=== PATIENT | male | born 1970 | race Caucasian/White ===

== ENCOUNTER 2018-03-28 20:06 | Inpatient (IN) | payer SELFPAY ==
[2018-03-28] MEDS ORDERED: NS 1,000 ML IV ONE ×2 (20:20→23:30)
--- NOTE | 2018-03-28 20:24 | EDPHY ---
H & P Stated Complaint: NV, fatigue, SOB Time Seen by Provider: 03/28/18 20:19 HPI/ROS: CHIEF COMPLAINT: Nausea vomiting, lethargy HISTORY OF PRESENT ILLNESS: Patient is a 47-year-old man with history of type 1 diabetes who states that he began feeling lethargic yesterday and then today began vomiting. He takes Levemir NovoLog regularly and has been taking them. His glucose at noon was 280 and then he took a dose of NovoLog. No fevers. No abdominal pain. No chest pain. Mild shortness of breath. No urinary symptoms. No headache. No rash. Severity: Severe Modifying factors: None REVIEW OF SYSTEMS: Constitutional: See HPI EENTM: denies: blurred vision, double vision, nose congestion Respiratory: denies: cough, shortness of breath Cardiac: denies: chest pain, irregular heart rate, lightheadedness, palpitations Gastrointestinal/Abdominal: See HPI Genitourinary: denies: dysuria, frequency, hematuria, pain Musculoskeletal: denies: joint pain, muscle pain Skin: denies: lesions, rash, jaundice, bruising Neurological: denies: headache, numbness, paresthesia, tingling, dizziness, weakness Hematologic/Lymphatic: denies: blood clots, easy bleeding, easy bruising Immunologic/allergic: denies: HIV/AIDS, transplant 10 systems reviewed and negative except as noted EXAM: GENERAL: Moderate distress HEAD: Atraumatic, normocephalic. EYES: Pupils equal round and reactive to light, extraocular movements intact, sclera anicteric, conjunctiva are normal. ENT: TMs normal, nares patent, oropharynx clear without exudates. Moist mucous membranes. NECK: Normal range of motion, supple without lymphadenopathy or JVD. LUNGS: Breath sounds clear to auscultation bilaterally and equal. No wheezes rales or rhonchi. HEART: Regular rate and rhythm without murmurs, rubs or gallops. ABDOMEN: Soft, nontender, normoactive bowel sounds. No guarding, no rebound. No masses appreciated. BACK: No CVA tenderness, no spinal tenderness, step-offs or deformities EXTREMITIES: Normal range of motion, no pitting or edema. No clubbing or cyanosis. NEUROLOGICAL: Cranial nerves II through XII grossly intact. Normal speech, normal gait. 5/5 strength, normal movement in all extremities, normal sensation , normal reflexes PSYCH: Normal mood, normal affect. SKIN: Warm, dry, normal turgor, no visible rashes or lesions. Source: Patient Exam Limitations: No limitations - Personal History Current Tetanus Diphtheria and Acellular Pertussis (TDAP): Yes - Medical/Surgical History Hx Asthma: No Hx Chronic Respiratory Disease: No Hx Diabetes: Yes Hx Cardiac Disease: No Hx Renal Disease: No Hx Cirrhosis: No Hx Alcoholism: No Hx HIV/AIDS: No Hx Splenectomy or Spleen Trauma: No Other PMH: IDDM - Family History Significant Family History: No pertinent family hx - Social History Smoking Status: Never smoked Alcohol Use: Sober Drug Use: None Constitutional: Initial Vital Signs Temperature (C) 36.4 C 03/28/18 20:11 Heart Rate 118 H 03/28/18 20:11 Respiratory Rate 18 03/28/18 20:11 Blood Pressure 148/99 H 03/28/18 20:11 O2 Sat (%) 98 03/28/18 20:11 O2 Delivery Mode Room Air Allergies/Adverse Reactions: No Known Allergies Allergy (Unverified 10/05/14 00:55) Home Medications: Medication Instructions Recorded Insulin Detemir [Levemir] 15 unit SQ BID 05/09/14 Aspirin 81 mg PO DAILY #30 tablet 05/10/14 Insulin Aspart [novoLOG] 0 units SQ TIDMEAL 10/05/14 Medical Decision Making ED Course/Re-evaluation: 8:40 p.m. The patient is acidotic in DKA. I will start DKA protocol. We have paged hospitalist service been 8:50 p.m. I discussed the case Dr. Lico Benedict who will admit to the medical service. Differential Diagnosis: Partial list of the Differential diagnosis considered include but were not limited to; dehydration, DKA, hyperosmolar, and although unlikely based on the history and physical exam, I also considered appendicitis, obstruction, sepsis. Critical Care Time: Critical care time spent by me, Dr. Stratton exclusive with this patient was 35 minutes, exclusive of the PA time exclusive of procedures. The organ system that was at risk was cardiovascular and I gave IV fluids, medications, diagnostics and admission to prevent worsening of the patient's condition - Data Points Laboratory Results: Laboratory Results 03/28/18 20:25 03/28/18 20:25 1103/28/18 03/28/18 20:34 20:25 20:25 WBC RBC Hgb POC Hgb 17.3 gm/dL gm/dL (13.7-17.5) Hct POC Hct 51 % % (40-51) MCV MCH MCHC RDW Plt Count MPV Neut % (Auto) Lymph % (Auto) [place] % (Auto) Eos % (Auto) Baso % (Auto) Nucleat RBC Rel Count Absolute Neuts (auto) Absolute Lymphs (auto) Absolute Monos (auto) Absolute Eos (auto) Absolute Basos (auto) Absolute Nucleated RBC Immature Gran % Immature Gran # Puncture Site Patient Temperature VBG pH VBG HCO3 VBG Total CO2 VBG O2 Saturation VBG Base Excess Mixed VBG pCO2 Mixed VBG pO2 POC Sodium 134 mEq/L L mEq/L (135-145) Sodium 136 mEq/L mEq/L (135-145) POC Potassium 4.8 mEq/L mEq/L (3.3-5.0) Potassium 5.3 mEq/L H mEq/L (3.3-5.0) POC Chloride 105 mEq/L mEq/L (97-110) Chloride 99 mEq/L mEq/L (97-110) Carbon Dioxide < 5 mEq/l L* mEq/l (22-31) Anion Gap TNP POC BUN 13 mg/dL mg/dL (7-23) BUN 13 mg/dL mg/dL (7-23) Creatinine 1.1 mg/dL mg/dL (0.7-1.3) POC Creatinine 0.9 mg/dL mg/dL (0.7-1.3) Estimated GFR > 60 Glucose 435 mg/dL H mg/dL (70-100) POC Glucose 435 mg/dL H mg/dL (70-100) Hemoglobin A1c Pending Estim Average Glucose Pending Calcium 11.3 mg/dL H mg/dL (8.5-10.4) Phosphorus 5.5 mg/dL H mg/dL (2.5-4.5) Magnesium 1.7 mg/dL mg/dL (1.6-2.3) Total Bilirubin 0.9 mg/dL mg/dL (0.1-1.4) Conjugated Bilirubin 0.3 mg/dL mg/dL (0.0-0.5) Unconjugated Bilirubin 0.6 mg/dL mg/dL (0.0-1.1) AST 26 IU/L IU/L (17-59) ALT 31 IU/L IU/L (21-72) Alkaline Phosphatase 107 IU/L IU/L (38-126) Total Protein 8.8 g/dL H g/dL (6.3-8.2) Albumin 5.4 g/dL H g/dL (3.5-5.0) Beta-Hydroxybutyrate 11.60 mmol/L H mmol/L (0.02-0.27) 03/28/18 03/28/18 20:25 20:25 WBC 13.16 10^3/uL H 10^3/uL (3.80-9.50) RBC 5.32 10^6/uL 10^6/uL (4.40-6.38) Hgb 15.9 g/dL g/dL (13.7-17.5) POC Hgb Hct 47.0 % % (40.0-51.0) POC Hct MCV 88.3 fL fL (81.5-99.8) MCH 29.9 pg pg (27.9-34.1) MCHC 33.8 g/dL g/dL (32.4-36.7) RDW 13.5 % % (11.5-15.2) Plt Count 495 10^3/uL H 10^3/uL (150-400) MPV 10.1 fL fL (8.7-11.7) Neut % (Auto) 78.1 % H % (39.3-74.2) Lymph % (Auto) 16.3 % % (15.0-45.0) [place] % (Auto) 4.0 % L % (4.5-13.0) Eos % (Auto) 0.0 % L % (0.6-7.6) Baso % (Auto) 0.9 % % (0.3-1.7) Nucleat RBC Rel Count 0.0 % % (0.0-0.2) Absolute Neuts (auto) 10.29 10^3/uL H 10^3/uL (1.70-6.50) Absolute Lymphs (auto) 2.14 10^3/uL 10^3/uL (1.00-3.00) Absolute Monos (auto) 0.52 10^3/uL 10^3/uL (0.30-0.80) Absolute Eos (auto) 0.00 10^3/uL L 10^3/uL (0.03-0.40) Absolute Basos (auto) 0.12 10^3/uL H 10^3/uL (0.02-0.10) Absolute Nucleated RBC 0.00 10^3/uL 10^3/uL (0-0.01) Immature Gran % 0.7 % % (0.0-1.1) Immature Gran # 0.09 10^3/uL 10^3/uL (0.00-0.10) Puncture Site VENOUS Patient Temperature 37.0 DEGREES DEGREES VBG pH 7.22 L (7.31-7.42) VBG HCO3 6 mEQ/L L mEQ/L (22-26) VBG Total CO2 7 mEq/L L mEq/L (21-27) VBG O2 Saturation 94 % H % (65-75) VBG Base Excess -20.5 mEq/L L mEq/L (-2.5-2.5) Mixed VBG pCO2 16 mmHg L mmHg (40-44) Mixed VBG pO2 85 mmHG H mmHG (35-40) POC Sodium Sodium POC Potassium Potassium POC Chloride Chloride Carbon Dioxide Anion Gap POC BUN BUN Creatinine POC Creatinine Estimated GFR Glucose POC Glucose Hemoglobin A1c Estim Average Glucose Calcium Phosphorus Magnesium Total Bilirubin Conjugated Bilirubin Unconjugated Bilirubin AST ALT Alkaline Phosphatase Total Protein Albumin Beta-Hydroxybutyrate Medications Given: Sodium Chloride (Ns) 1,000 mls @ 200 mls/hr IV CONT DAILY Stop: 09/24/18 21:29 Last Admin: 03/28/18 22:10 Dose: 1,000 mls Discontinued Medications Sodium Chloride (Ns) 1,000 mls @ 1,000 mls/hr IV EDNOW ONE PRN Reason: Protocol Stop: 03/28/18 21:19 Last Admin: 03/28/18 20:43 Dose: 1,000 mls Insulin Human Regular 100 unit / Miscellaneous Medication 1 ea/ Sodium Chloride 101 mls @ 0 mls/hr IV EDNOW ONE; Per Protocol PRN Reason: Protocol Stop: 03/28/18 20:42 Last Admin: 03/28/18 21:13 Dose: 101 mls Ondansetron HCl (Zofran) 4 mg IVP EDNOW ONE Stop: 03/28/18 20:44 Last Admin: 03/28/18 20:46 Dose: 4 mg Ondansetron HCl (Zofran) 4 mg IVP EDNOW ONE Stop: 03/28/18 21:26 Last Admin: 03/28/18 21:28 Dose: 4 mg Promethazine HCl (Phenergan) 12.5 mg IVP EDNOW ONE Stop: 03/28/18 21:36 Last Admin: 03/28/18 21:38 Dose: 12.5 mg Point of Care Test Results: Chemistry 03/28/18 20:34 POC Sodium 134 mEq/L L mEq/L (135-145) POC Potassium 4.8 mEq/L mEq/L (3.3-5.0) POC Chloride 105 mEq/L mEq/L (97-110) POC BUN 13 mg/dL mg/dL (7-23) POC Creatinine 0.9 mg/dL mg/dL (0.7-1.3) POC Glucose 435 mg/dL H mg/dL (70-100) ISTAT H&H 03/28/18 20:34 POC Hgb 17.3 gm/dL gm/dL (13.7-17.5) POC Hct 51 % % (40-51) Departure - Departure Disposition: [facility]patient Acute Clinical Impression: DKA (diabetic ketoacidoses) Qualifiers: Diabetes mellitus type: type 1 Diabetes mellitus complication detail: without coma Qualified Code(s): E10.10 - Type 1 diabetes mellitus with ketoacidosis without coma Condition: Critical
[2018-03-28] MEDS ORDERED: ONDANSETRON 4 MG/2 ML VIAL ONE (20:38)
[2018-03-28 20:39] LABS: PLATELET COUNT 495 10^3/uL (150-400)
[2018-03-28] MEDS ORDERED: INSULIN REGULAR HUMAN 100 UNIT, COSIGN. REQUIRED 1 EA in NS 100 ML IV ONE (20:41)
[2018-03-28] MEDS ORDERED: ONDANSETRON 4 MG/2 ML VIAL IVP ONE ×2 (20:43→21:25)
[2018-03-28] MEDS ORDERED: ACETAMINOPHEN 325 MG TAB PO PRN (21:22)
[2018-03-28] MEDS ORDERED: ONDANSETRON DISINTEGRATING 4 MG TAB PO PRN (21:22)
[2018-03-28] MEDS: NS 1,000 ML IV SCH ×2 (21:30→22:10)
[2018-03-28] MEDS ORDERED: PROMETHAZINE HCL 25 MG/ML INJ ONE (21:35)
[2018-03-28] MEDS ORDERED: PROMETHAZINE HCL 25 MG/ML INJ IVP ONE (21:35)
--- NOTE | 2018-03-28 22:13 | GHP ---
DATE OF ADMISSION: 03/28/2018 HISTORY OF PRESENT ILLNESS: The patient is a pleasant 47-year-old gentleman with history of type 1 d iabetes who presents with nausea and vomiting. He has been being treated for a tooth abscess with cl indamycin. He has not had a surgical procedure the last couple of days. He has been feeling just no t great and then this afternoon he felt weak, lethargic, vomiting, with elevated blood sugars and he sought care. He was found to have an anion gap acidosis with an undetectable bicarb. He has been taking his insulin as scheduled. He has had other episodes of DKA. He has had a bit of diarrhea today. He has not had fever or chills. He has not had on cough or sputum. He used cocaine earlier in the week, just once in a small amount, but not habitually. REVIEW OF SYSTEMS: Complete 10-point review of systems conducted and negative except as noted in the HPI. PAST MEDICAL HISTORY: Type 1 diabetes with episodes of DKA. Believes his last A1c was around 9. SOCIAL HISTORY: Works in a [employer]. Does not smoke cigarettes. FAMILY HISTORY: Reviewed and unremarkable. PHYSICAL EXAMINATION: VITAL SIGNS: Temp 36.4, blood pressure 148/99, pulse 118, breathing 18 times a minute, 98% on room air. GENERAL: No acute distress. Sclerae anicteric. Oropharynx clear. His left lower molars are of poor quality with some decay, but no purulence. There is no foul odor. The re is no fluctuance in his jaw. They are nontender to percussion with a popsicle stick. NECK: Supp le without lymphadenopathy or JVD. LUNGS: Clear to auscultation bilaterally. HEART: S1, S2. Tach ycardic. ABDOMEN: Soft, nontender, nondistended. LOWER EXTREMITIES: Without edema. Calves nonten pradeep. SKIN: Without rash NEUROLOGIC: Nonfocal. LABORATORY DATA: White count 13, hematocrit 47, platelets 495,000. Venous gas shows a pH of 7.2, bi carb 6, and a pCO2 of 7. It is a venous gas, though. Sodium 136, potassium 5.3, chloride 99, bicarb less than 5. BUN 13, creatinine 1.1, glucose 435. Calcium is slightly high at 11.3, phosphorus hig h 5.5. LFTs normal. Albumin is high 5.4. Beta hydroxybutyrate is pending. There is no imaging. I have discussed the case with Dr. Los Stratton. ASSESSMENT/PLAN: A 47-year-old gentleman here with diabetic ketoacidosis. 1. Diabetic ketoacidosis. The patient is taking his insulin, but he clearly has diabetic ketoacidos is. I will place on DKA protocol. Admitted to the ICU. 2. Trigger for DKA. This remains uncertain. I have considered pneumonia but he has a clear chest x -ray. I will draw some blood cultures to rule out infection. I think his jaw could be a source, but it looks pretty good, so we will hold off on advanced imaging for that for now. We will also send a Clostridium difficile. 3. The patient states he has been taking his insulin, but noncompliance is also another potential ta rget. 4. Hyperkalemia. This is mild. Will follow. He will be on telemetry in the ICU. 5. Hypercalcemia. I suspect this is secondary to his volume depleted state. We will follow. 6. Diarrhea. Check for Clostridium difficile. DISPOSITION: ICU. Forty minutes critical care spent. /[id number]/MODL
[2018-03-28] MEDS ORDERED: RN:ENTER POTASSIUM ICU PROTOCOL ON WORKLIST MISC ONE (23:00)
[2018-03-28] MEDS ORDERED: INSULIN REGULAR HUMAN 100 UNIT in NS 100 ML IV SCH (23:00)
[2018-03-28] MEDS ORDERED: NS 500 ML IV ONE (23:00)
[2018-03-28] MEDS ORDERED: D50W 25 GM/50 ML SYR IVP PRN (23:00)
[2018-03-28] MEDS: ONDANSETRON 4 MG/2 ML VIAL IVP PRN (23:00)
[2018-03-28] MEDS: D10W 1,000 ML IV SCH (23:16)
[2018-03-28] MEDS: NS 500 ML IV ONE (23:49)
[2018-03-28] MEDS: PROMETHAZINE HCL 25 MG/ML INJ IVP ONE ×2 (23:50)
[2018-03-29] MEDS: NS 500 ML IV ONE (00:10)
[2018-03-29] MEDS ORDERED: PROMETHAZINE HCL 25 MG/ML INJ ONE (00:29)
[2018-03-29] MEDS: PROMETHAZINE HCL 25 MG/ML INJ IVP PRN (01:00)
[2018-03-29] MEDS ORDERED: LORazepam 2 MG/ML INJ ONE (02:53)
[2018-03-29] MEDS: ONDANSETRON 4 MG/2 ML VIAL IVP PRN ×2 (02:55→12:12)
[2018-03-29] MEDS: LORazepam 2 MG/ML INJ IVP PRN ×2 (03:00→06:16)
[2018-03-29] MEDS: D10W 1,000 ML IV SCH ×2 (06:19→11:36)
--- NOTE | 2018-03-29 09:54 | ASMTCMCOM ---
CM Note CM Note Notes: 47yo male admitted for N/V/D/ DKA. He has a Hx of DM-1 and Cocaine use. Patient listed as in "Demographics". Not anticipating that he will have discharge needs. Date Signed: 03/29/2018 09:53 AM Electronically Signed By:Karen Harper LCSW
[2018-03-29] MEDS: NS 1,000 ML IV SCH ×3 (10:11→15:25)
[2018-03-29] MEDS ORDERED: D50W 25 GM/50 ML SYR IVP PRN (11:48)
[2018-03-29] MEDS: INSULIN GLARGINE 100 UNITS/ML UNIT SC SCH ×3 (12:27→20:22)
--- NOTE | 2018-03-29 13:24 | HOSPPROG ---
Hospitalist Progress Note Assessment/Plan: Jorge Burrell is a 47 yo M who presented with DKA DKA - AG 26, B-Hydroxybutyrate 11.6, pH 7.16, BG 400's on admission - Started on DKA protocol - AG closed, pH >7.3, Bicarb >15 this AM, however patient remains nauseous - Will continue Insulin gtt until patient able to eat - After tolerating diet will transition to Lantus 15 units BID, SSI - Reason for DKA unclear at this point, had recent dental procedure with decreased PO intake but reports taking insulin Uncontrolled T1DM - A1c 12.3 on admission - Reports taking Levemir 15 units BID, SSI with meals - Will titrate insulin regimen while IP due to poor control at home - Patient to f/u with OP endocrinology for further management Nausea/Vomiting - In setting of DKA - Lipase WNL on admission - Continue PRN antiemetics Hyperkalemia/Hypercalcemia - 2/2 to volume depletion in setting of DKA - K improved to 4.6 this AM - Continue to monitor FEN: IVF per protocol, advance diet as tolerated Code: FULL Dispo: Pending clinical course Subjective: Patient reports nausea this AM Objective: Vital Signs Temp Pulse Resp BP Pulse Ox 36.7 C 87 24 H 132/71 H 100 03/29/18 12:00 03/29/18 13:00 03/29/18 13:00 03/29/18 13:00 03/29/18 12:00 Laboratory Results 03/29/18 04:00 03/29/18 12:05 03/28/18 03/29/18 03/30/18 05:59 05:59 05:59 Intake Total 4932 Output Total 9617 650 Balance 2357 -650 - Physical Exam Constitutional: uncomfortable Eyes: PERRL Ears, Nose, Mouth, Throat: dry mucous membranes Cardiovascular: regular rate and rhythym Respiratory: no respiratory distress Gastrointestinal: soft, non-tender abdomen Genitourinary: no bladder tenderness Skin: normal color Neurologic: AAOx3 Psychiatric: interacting appropriately ICD10 Worksheet Patient Problems: Problems Problem Status Onset DKA (diabetic ketoacidoses) Acute
[2018-03-29] MEDS ORDERED: PROTOCOL POTASSIUM 1 DOSE MISC PRN (15:18)
[2018-03-29] MEDS: POTASSIUM Cl (KCl) 100 ML IV SCH ×3 (15:25→18:40)
[2018-03-29] MEDS: INSULIN REGULAR HUMAN 100 UNIT/ML UNIT SC SCH ×3 (17:37→22:00)
[2018-03-30] MEDS: PROMETHAZINE HCL 25 MG/ML INJ IVP PRN (09:19)
[2018-03-30] MEDS: INSULIN GLARGINE 100 UNITS/ML UNIT SC SCH ×2 (09:38→21:43)
[2018-03-30] MEDS: INSULIN REGULAR HUMAN 100 UNIT/ML UNIT SC SCH ×4 (09:39→21:44)
--- NOTE | 2018-03-30 10:01 | HOSPPROG ---
Hospitalist Progress Note Assessment/Plan: Jorge Burrell is a 47 yo M who presented with DKA DKA - AG 26, B-Hydroxybutyrate 11.6, pH 7.16, BG 400's on admission - Started on DKA protocol - AG closed, pH >7.3, Bicarb >15 yesterday - Transitioned from Insulin gtt to home Lantus 15 units BID, SSI, uptitrate dose as needed - Reason for DKA unclear at this point, had recent dental procedure with decreased PO intake but reports taking insulin Uncontrolled T1DM - A1c 12.3 on admission - Reports taking Levemir 15 units BID, SSI with meals - Will titrate insulin regimen while IP due to poor control at home - Patient to f/u with OP PCP/endocrinology for further management Nausea/Vomiting - In setting of DKA - Lipase WNL on admission - Continue PRN antiemetics Hyperkalemia/Hypercalcemia - 2/2 to volume depletion in setting of DKA - K improved to 4.6 - Continue to monitor FEN: IVF per protocol, advance diet as tolerated Code: FULL Dispo: Pending clinical course, patient still feeling nauseous today, will keep overnight to observe BG and titrate insulin regimen accordingly Subjective: Patient reports feeling some nausea this AM Objective: Vital Signs Temp Pulse Resp BP Pulse Ox 37 C 77 14 90/67 L 100 03/30/18 08:00 03/30/18 08:00 03/30/18 08:00 03/30/18 08:00 03/29/18 19:00 Laboratory Results 03/29/18 04:00 03/29/18 18:00 03/29/18 03/30/18 03/31/18 05:59 05:59 05:59 Intake Total 4932 5379 Output Total 0678 7811 Balance 2357 2428 - Physical Exam Constitutional: uncomfortable Eyes: PERRL Ears, Nose, Mouth, Throat: dry mucous membranes Cardiovascular: regular rate and rhythym Respiratory: no respiratory distress Gastrointestinal: soft, non-tender abdomen Genitourinary: No rivera in urethra Skin: normal color Musculoskeletal: full muscle strength Neurologic: AAOx3 Psychiatric: interacting appropriately ICD10 Worksheet Patient Problems: Problems Problem Status Onset DKA (diabetic ketoacidoses) Acute
[2018-03-30] MEDS: ONDANSETRON 4 MG/2 ML VIAL IVP PRN (12:44)
--- NOTE | 2018-03-30 12:53 | PDMN ---
Medical Necessity Medical necessity: MCG: M130 diabetes: DKA - unknown reason, with persistent nausea, ongoing monitoring needed> 2 MN, status changed to INPT 03/30/18
[2018-03-31] MEDS: LORazepam 2 MG/ML INJ IVP PRN (00:50)
[2018-03-31 08:24] VITALS: BP 124/77
--- NOTE | 2018-03-31 09:54 | PDDCSUM ---
Discharge Summary Discharge Summary: Date of Admission: 03/30/2018 Date of Discharge: 03/31/2018 Consults: Critical Care Followup: PCP within next week, Endocrinology Hospital Course Problem List: DKA - AG 26, B-Hydroxybutyrate 11.6, pH 7.16, BG 400's on admission - Started on DKA protocol - AG closed, pH >7.3, Bicarb >15 - Transitioned from Insulin gtt to home Lantus 15 units BID, SSI, uptitrate dose as needed - Reason for DKA unclear at this point, had recent dental procedure with decreased PO intake but reports taking insulin - Discussed with patient that he will likely require increased dosing of long acting insulin, he will f/u with PCP and Endocrinology within next week for further management Uncontrolled T1DM - A1c 12.3 on admission - Reports taking Levemir 15 units BID, SSI with meals - Patient to f/u with OP PCP/endocrinology for further management as above Nausea/Vomiting- Resolved - In setting of DKA - Lipase WNL on admission - Continue PRN antiemetics Hyperkalemia/Hypercalcemia - 2/2 to volume depletion in setting of DKA - K improved to 4.6 - Continue to monitor Time spent on discharge was >35 minutes with >50% fo time spent on patient education and counseling
[2018-03-31] MEDS: INSULIN REGULAR HUMAN 100 UNIT/ML UNIT SC SCH ×2 (10:49→13:14)
[2018-03-31] MEDS: INSULIN GLARGINE 100 UNITS/ML UNIT SC SCH (10:50)
--- NOTE | 2018-03-31 11:22 | ASMTDCNOTE ---
Case Management Discharge Discharge Order Complete? Answers: Yes Patient to Obtain Answers: Independently Medications Transportation Arranged Answers: Family/Friends Transport will Pick (Date 03/31/2018 12:00 AM & Time) Discharge Comments Notes: Patient is a 47yo male who was admitted for diabetic ketoacidosis. He does not have any discharge needs. Patient to discharge home independently today. Date Signed: 03/31/2018 11:21 AM Electronically Signed By:Lorena Harrell LCSW
--- NOTE | 2018-03-31 11:27 | ASDISCHSUM ---
Discharge Information Plan Status:Home with No Needs Medically Cleared to Leave:03/30/2018 Discharge Date:03/30/2018 CM D/C Disposition:Home, Routine, Self-Care ADT D/C Disposition: Projected Discharge Date:03/31/2018 12:00 AM Transportation at D/C:Family Discharge Delay Reason: Follow-Up Date:03/31/2018 12:00 AM Discharge Slot:2 - 12:01 pm - 18:00 pm Final Diagnosis:DKA, N/V/D Placement Information Patient Contact Information Contact Name:LAUREN Relationship: Address:[address] City:[facility] Phone: State/Zip Code:[place] [address] Email: Financial Information Financial Class:Self-Pay Primary Plan Desc:SELF PAY Primary Plan Number: Secondary Plan Desc: Secondary Plan Number: Assessment Information LACE LACE Length of stay for Answers: 1 day current admission Acuity / Level of Answers: Yes Care: Did the patient have an inpatient admission? Comorbidities - select Answers: Diabetes (uncontrolled or all that apply controlled) # of Emergency department Answers: 1-2 visits in the last 6 months Score: 6 Date Signed: 03/31/2018 11:25 AM Electronically Signed By:Lorena Harrell LCSW [facility] CM Progress Note CM Note CM Note Notes: 47yo male admitted for N/V/D/ DKA. He has a Hx of DM-1 and Cocaine use. Patient listed as in "Demographics". Not anticipating that he will have discharge needs. Date Signed: 03/29/2018 09:53 AM Electronically Signed By:Karen Harper LCSW Case Management Discharge Plan Note Case Management Discharge Discharge Order Complete? Answers: Yes Patient to Obtain Answers: Independently Medications Transportation Arranged Answers: Family/Friends Transport will Pick (Date 03/31/2018 12:00 AM & Time) Discharge Comments Notes: Patient is a 47yo male who was admitted for diabetic ketoacidosis. He does not have any discharge needs. Patient to discharge home independently today. Date Signed: 03/31/2018 11:21 AM Electronically Signed By:Lorena Harrell LCSW Intervention Information
== END 2018-03-31 11:35 | disposition home or self-care (01) | DRG 639 ==
LOC: F2N 22:01 → OBSVTOIN 03-30 12:46
PROVIDERS: ADMIT Internal Medicine; ATTEND Internal Medicine
DX: E10.10 Type 1 diabetes mellitus with ketoacidosis without coma (principal); E86.9 Volume depletion, unspecified; E87.5 Hyperkalemia; E83.52 Hypercalcemia
CPT/HCPCS: 82435-PO; 82565-PO; 82947-PO; 83605-PO; 84132-PO; 84295-PO; 84520-PO; 85014-PO; 96374; G0378; J1815; J2060; J2405; J2550; J3480